=== PATIENT | male | born 1965 | race Caucasian/White ===

== ENCOUNTER 2022-08-03 18:47 | Emergency (ER) | payer OTHER ==
[2022-08-03 18:54] VITALS: BP 146/89
[2022-08-03 20:30] LABS: Basophils # (Auto) 0.1 K/mm3 (0.0-0.1); Eosinophils # (Auto) 0.3 K/mm3 (0.0-0.4); Eosinophils % (Auto) 3.5 % (0.0-4.3); Lymphocytes # (Auto) 3.2 K/mm3 (1.2-5.4); Lymphocytes % (Auto) 35.5 % (13.4-35.0); Mean Corpuscular HGB Conc 33 % (32-34); Mean Corpuscular Volume 87 fl (84-94); Monocytes # (Auto) 0.8 K/mm3 (0.0-0.8); Monocytes % (Auto) 8.6 % (0.0-7.3); Platelet Count 145 K/mm3 (140-440); Red Blood Count 5.52 M/mm3 (3.65-5.03); Red Cell Distribution Width 13.5 % (13.2-15.2)
[2022-08-03 20:42] LABS: Alanine Aminotransferase 54 units/L (7-56); Albumin 4.8 g/dL (3.9-5); BUN/Creatinine Ratio 19; Blood Urea Nitrogen 17 mg/dL (9-20); Calcium 9.7 mg/dL (8.4-10.2); Hemolysis Index 16; INR 0.97 (0.87-1.13); Partial Thromboplastin Time 36.6 Sec. (24.2-36.6)
--- NOTE | 2022-08-03 21:57 | Cat Scan Report ---
CT head/brain wo con INDICATION / CLINICAL INFORMATION: 56 years Male; R sided facial droop since 7am today. TECHNIQUE: Routine CT head without contrast. All CT scans at this location are performed using CT dos e reduction for ALARA by means of automated exposure control. COMPARISON: None. FINDINGS: BRAIN / INTRACRANIAL CONTENTS: No acute hemorrhage, mass effect, midline shift, hydrocephalus, or acu te, large territorial infarct. No signs of significant atrophy or chronic infarct. No significant whi te matter abnormality seen. CRANIOCERVICAL JUNCTION: No significant abnormality. ORBITS: No significant abnormality of visualized orbits. SINUSES / MASTOIDS: Mild to moderate mucosal thickening in the ethmoids. Mild mucosal thickening also seen in the mastoids. ADDITIONAL FINDINGS: None. IMPRESSION: 1. No focal mass, hemorrhage, hydrocephalus, or acute, large territorial infarct. Signer Name: London Bhardwaj MD, III Signed: 08/03/2022 9:52 PM Workstation Name: [id number]
[2022-08-03 22:21] LABS: INR 0.97 (0.87-1.13)
[2022-08-03 22:24] LABS: Creatine Kinase MB 2.7 ng/mL (0.0-4.0)
--- NOTE | 2022-08-04 01:02 | Cat Scan Report ---
CT angio head INDICATION / CLINICAL INFORMATION: 56 years Male; stroke sx. TECHNIQUE: Thin cut axial images obtained through the head during IV bolus contrast administration. S agittal, coronal, and 3 plane MIP reconstructions performed by the technologist. NASCET type criteria used evaluate stenoses. Automated exposure control utilized for radiation reduction purposes. . COMPARISON: None available. FINDINGS: INTERNAL CAROTID ARTERIES: No significant narrowing appreciated. VERTEBROBASILAR SYSTEM: No significant narrowing appreciated. DISTAL BRANCHES: Distal branches of the anterior, middle, and posterior cerebral arteries are fairly symmetric in appearance and number. ANEURYSM: None identified. ADDITIONAL FINDINGS: Remainder of the surrounding soft tissues are grossly normal. IMPRESSION: 1. No significant narrowing or signs of large vessel occlusion appreciated on this CTA of the head. Signer Name: London Bhardwaj MD, III Signed: 08/04/2022 12:57 AM Workstation Name: [id number]
--- NOTE | 2022-08-04 01:07 | Cat Scan Report ---
CT angio neck INDICATION / CLINICAL INFORMATION: 56 years Male; stroke sx. TECHNIQUE: Thin cut axial images obtained through the head during IV bolus contrast administration. S agittal, coronal, and 3 plane MIP reconstructions performed by the technologist. NASCET type criteria used evaluate stenoses. All CT scans at this location are performed using CT dose reduction for ALAR A by means of automated exposure control. . COMPARISON: None available. FINDINGS: ARCH: Normal aortic arch branching suggested. CAROTID ARTERIES: The visualized common and internal carotid arteries are widely patent. VERTEBRAL ARTERIES: Codominant vertebral system seen. No significant stenosis appreciated. ADDITIONAL FINDINGS: Concerning the cervical spine, there is disc space narrowing at C5-6 and C6-7 wi th anterior spondylosis. Moderate osseous foraminal narrowing is seen on the left at C5-6. Mild disc disease seen at this level which may encroach upon the cervical cord. Moderate facet hypertrophy seen at C7-T1, left slightly greater than right. IMPRESSION: No significant stenosis appreciated on this CTA of the neck. Signer Name: London Bhardwaj MD, III Signed: 08/04/2022 1:02 AM Workstation Name: [email or web address]
--- NOTE | 2022-08-04 01:14 | Emergency Department Report ---
ED General Adult HPI - General Chief complaint: Weakness Stated complaint: POSSIBLE STROKE PUI?: No Time Seen by Provider: 08/03/22 21:25 Source: patient, family Mode of arrival: Ambulatory Limitations: Language Barrier - History of Present Illness Initial comments: right side facial numbness and eye pain for the last 2 days got worse this am at 9 no upper or lower limb weakness -: days(s) Location: face, mouth, eyes Severity scale (0 -10): 2 Consistency: constant Improves with: none Worsens with: none Associated Symptoms: denies: denies other symptoms, confusion, chest pain, cough, diaphoresis, fever/chills, headaches, loss of appetite, malaise, nausea/vomiting, rash, seizure Treatments Prior to Arrival: none - Related Data Previous Rx's Medication Instructions Recorded Last Taken Type Sulfamethoxazole/Trimethoprim 1 each PO BID #20 tablet 03/16/15 Unknown Rx [Bactrim Ds] cephALEXin [Keflex] 500 mg PO TID #30 capsule 03/16/15 Unknown Rx Allergies Allergy/AdvReac Type Severity Reaction Status Date / Time No Known Allergies Allergy Unverified 03/16/15 08:56 ED Review of Systems ROS: Stated complaint: POSSIBLE STROKE Other details as noted in HPI Constitutional: denies: chills, fever Eyes: denies: eye pain, eye discharge, vision change ENT: denies: ear pain, throat pain Respiratory: denies: cough, shortness of breath, wheezing Cardiovascular: denies: chest pain, palpitations Endocrine: no symptoms reported Gastrointestinal: denies: abdominal pain, nausea, diarrhea Genitourinary: denies: urgency, dysuria Musculoskeletal: denies: back pain, joint swelling, arthralgia Skin: denies: rash, lesions Neurological: denies: headache, weakness, paresthesias Psychiatric: denies: anxiety, depression Hematological/Lymphatic: denies: easy bleeding, easy bruising ED Past Medical Hx - Past Medical History Previous Medical History?: No Hx Hypertension: No - Surgical History Additional Surgical History: right knee - Social History Smoking Status: Current Every Day Smoker Substance Use Type: None - Medications Home Medications: Home Medications Medication Instructions Recorded Confirmed Last Taken Type Sulfamethoxazole/Trimethoprim 1 each PO BID #20 tablet 03/16/15 Unknown Rx [Bactrim Ds] cephALEXin [Keflex] 500 mg PO TID #30 capsule 03/16/15 Unknown Rx ED Physical Exam - General Limitations: Language Barrier General appearance: alert, in no apparent distress, other (facial drrop ) - Head Head exam: Present: atraumatic, normocephalic - Eye Eye exam: Present: normal appearance, conjunctival injection (right side) - ENT ENT exam: Present: mucous membranes moist - Neck Neck exam: Present: normal inspection - Respiratory Respiratory exam: Present: normal lung sounds bilaterally. Absent: respiratory distress - Cardiovascular Cardiovascular Exam: Present: regular rate, normal rhythm. Absent: systolic murmur, diastolic murmur, rubs, gallop - GI/Abdominal GI/Abdominal exam: Present: soft, normal bowel sounds - Rectal Rectal exam: Present: deferred - Extremities Exam Extremities exam: Present: normal inspection - Back Exam Back exam: Present: normal inspection - Neurological Exam Neurological exam: Present: alert, oriented X3 - Expanded Neurological Exam Expanded Patient oriented to: Present: person, place, time Speech: Present: fluid speech Cranial nerves: Facial Sensation: Abnormal Right, Facial Palsy without Forehead Movement: Abnormal Right Best Eye Response (Donald): (4) open spontaneously Best Motor Response (Donald): (6) obeys commands Best Verbal Response (Donald): (5) oriented [place] Total: 15 - Psychiatric Psychiatric exam: Present: normal affect, normal mood - Skin Skin exam: Present: warm, dry, intact, normal color. Absent: rash ED Course Vital Signs 08/03/22 08/03/22 18:50 18:51 Temperature 98.3 F 99.1 F Pulse Rate 89 38 L Respiratory 16 18 Rate Blood Pressure 146/89 Blood Pressure 169/72 [Right] O2 Sat by Pulse 98 96 Oximetry ED Medical Decision Making - Lab Data Result diagrams: 08/03/22 20:15 08/03/22 20:15 - Radiology Data Radiology results: report reviewed, image reviewed - Medical Decision Making work up negatve , negatve ct and CTa symtpoms consistant with bells palsy Critical care attestation.: If time is entered above; I have spent that time in minutes in the direct care of this critically ill patient, excluding procedure time. ED Disposition Clinical Impression: Facial palsy Disposition: 01 HOME / SELF CARE / HOMELESS Is pt being admited?: No Does the pt Need Aspirin: No Condition: Stable Instructions: [place] Palsy, Adult Referrals: SOLANGE MCKEON [Other] - 3-5 Days Print Language: POLISH
== END 2022-08-04 01:47 | disposition home or self-care (01) ==
LOC: ED 18:47
DX: G51.0 Bell's palsy (principal); F17.200 Nicotine dependence, unspecified, uncomplicated
CPT/HCPCS: 36415; 70450; 70496; 70498; 80053; 82550; 82553; 82962; 84484; 85025; 85610; 85730; 99284; Q9967